=== PATIENT | male | born 1970 | race Caucasian/White ===

== ENCOUNTER → 2019-01-13 | Outpatient (CLI) | payer OTHER ==
[2015-08-21 17:30] VITALS: BP 134/84
[~2019-01-13] MED LIST: IBUP200T44 PO; IOHEXOL 300 MG/ML 100ML VIAL. IV ONE
--- NOTE | 2019-01-13 11:50 | KCIC ---
CT study of the chest without contrast Clinical indications: Abnormal chest x-ray. Shortness of air on exertion. Wheezing. Cough. COMPARISON: December 29, 2018 chest x-ray. Chest CTA dated August 21, 2015. TECHNIQUE: After IV infusion of 95 cc of Omnipaque 300, helical CT scanning of the chest was performed. PQRS compliance Statement One or more of the following individualized dose reduction techniques were utilized for this study: 1. Automated exposure control 2. Adjustment of the mA and/or kV according to patient size 3. Use of iterative reconstruction technique FINDINGS: No focal aneurysmal dilatation or dissection of the thoracic aorta is seen. No enlarged thoracic lymphadenopathy is evident. Calcified lymph nodes of the lower posterior mediastinum are seen due to old granulomatous disease. The heart size is normal and no pericardial effusion is seen. No lung mass or lung infiltrate is seen. No pleural effusion or pneumothorax is evident. The proximal bronchial tree is patent. No lytic process is seen. No adrenal mass is evident. Small subcentimeter hypodense nodules of liver are seen which are stable consistent with small cysts. IMPRESSION: No acute abnormality of the chest. Electronically signed by: Asad Quintero MD (01/13/2019 11:47 AM) [facility]
== END | disposition home or self-care (01) ==
LOC: KCIC CT 08:38
PROVIDERS: ATTEND Family Medicine
DX: R91.8 Other nonspecific abnormal finding of lung field (principal); J45.909 Unspecified asthma, uncomplicated
CPT/HCPCS: 71260; Q9967

== ENCOUNTER → 2022-04-10 | Outpatient (CLI) | payer BC ==
[2015-08-21 17:30] VITALS: BP 134/84
[~2022-04-10] MED LIST changes: -IOHEXOL 300 MG/ML 100ML VIAL. IV ONE
== END ==
LOC: LAB 13:07
PROVIDERS: ATTEND Podiatrist
DX: Z01.812 Encounter for preprocedural laboratory examination (principal); Z20.822 Contact with and (suspected) exposure to COVID-19
CPT/HCPCS: U0003